=== PATIENT | male | born 1965 | race Caucasian/White ===

== ENCOUNTER 2023-01-02 14:46 | Inpatient (IN) ==
[2023-01-02] MEDS ORDERED: SODIUM CHLORIDE 0.9% 500 ML IV SCH (15:15)
--- NOTE | 2023-01-02 15:26 | Emergency Department Note ---
Impression & Plan Bilateral leg weakness, Lyme disease ED Provider Note INFORMANT: Patient ED PROVIDER(S): Jono Ashley DO CHIEF COMPLAINT: Leg weakness PLAN: Disposition: Transfer Outpatient prescription management: none Discussion with: oncology service and internal medicine service at [facility]. MEDICAL DECISION MAKING: This is a 57-year-old male who presents to the ED with a chief complaint of left leg weakness. The patient was at [facility] last through Saturday. He went there because of right leg weakness that started the day after Mother's Day. 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 He reportedly saw the surgical service there and had an MRI of his spine and a tumor was seen but it was not on the spine, it was paraspinal and the patient was discharged to rehab on Saturday. He has been at rehab. He reportedly did not see a neurologist or have any further work-up done for his leg weakness. The patient was sent to [facility]. He has been there for the past several days. This morning and perhaps even last evening the patient noticed weakness in his left leg that has progressed. He states that he did have motor function of the left leg upon discharge although he was not able to bear weight at that time. The states that he was able to bear weight prior to Mother's Day. He did not require any assistance. The patient has no additional complaints other than some left knee swelling that started yesterday. The was thinking it was related to physical therapy as they were manipulating his legs a lot. The patient denies any upper extremity weakness. No difficulty breathing. No abdominal pain. He does have chronic back pain. Vital signs here reveal tachycardia with heart rate of 119. Blood pressure 98/71. At 1600 hrs., I did speak with the Dr. Traore from [facility] oncology. She recommended high-dose steroids. 1 g of IV Solu-Medrol was administered. The patient is being accepted to go back to [place] for further work-up of his symptoms. The exact cause of his weakness is uncertain at this time. His exam reveals significant weakness in his bilateral legs. No reflexes. Unable to lift either leg off the bed. Able to move his left foot slightly. He reports that as of yesterday he was able to lift it off the bed. No upper extremity weakness. No other area of weakness in his face. COVID test was negative. EKG shows sinus tach rate of 117. No ST elevations. CBC shows no leukocytosis. Hemoglobin is 11.6. Chest x-ray shows no acute process. Chemistry panel showed no concerning abnormalities. BUN was 28. Lactic acid is mildly elevated 2.1. The Lyme test IgG came back positive. IgM was negative. He states that he has never been treated for Lyme disease. He was given IV Rocephin 2 g. The patient was treated with IV fluids. He was given a gram of IV Solu-Medrol. He will be transferred to [facility] for further evaluation of his symptoms. Because of his extensive back surgery and hardware, lumbar p uncture was not performed to rule out GBS. The patient's blood pressure was somewhat low here and he was mildly tachycardic. He states this is normal for him. [facility] contacted us around 8 PM stating that the patient is unable to be admitted there. There were no beds available. They are unsure when they will get a bed. I called the hospitalist who will see the patient for further evaluation and care. Triage Nursing notes reviewed. Vital Signs: reviewed Prior /Outside records reviewed: none Differential diagnosis: GN Robles syndrome, transverse myelitis, Lyme disease, spinal cord compression, cauda equina syndrome, conus medullaris, other. Diagnostics, as interpreted by me: 12 lead ECG: Sinus tachycardia rate of 117. No ST elevation. No PVCs. Normal QTc. Cardiac Monitoring ordered: Sinus tach 115. Medical decision rules: none Imaging studies: Chest x-ray: No pneumonia. No pneumothorax. Procedures: none. Critical care: none. HPI: See MDM above. PAST MEDICAL HISTORY: See Below PAST SURGICAL HISTORY: See Below SOCIAL HISTORY: See Below HOME MEDICATIONS:See Below ALLERGIES: See Below VITALS: See Below PHYSICAL EXAMINATION: See MDM for positive findings otherwise unremarkable. CONSTITUTIONAL/VITAL SIGNS: Reviewed GENERAL:done as appropriate INTEGUMENTARY: done as appropriate HEAD: done as appropriate EYES: done as appropriate RESPIRATORY: done as appropriate CARDIOVASCULAR:done as appropriate GI/ABDOMEN:done as appropriate EXTREMITIES: done as appropriate NEUROLOGICAL: done as appropriate PSYCHIATRIC:done as appropriate MUSCULOSKELETAL:done as appropriate TRIAGE NURSING DOCUMENTATION REVIEWED. Past Med/Surg History Social History Smoking Status: Never smoker Feels Safe at Home: Yes Allergies Allergies Allergy/AdvReac Type Severity Reaction Status Date / Time TAPE Allergy Mild IRRITATES Uncoded 01/02/23 15:32 SKIN Home Meds Home Medications Medication Instructions Recorded Confirmed acetaminophen 325 mg tablet 650 mg PO Q4H PRN Pain (Scale 01/02/23 01/02/23 (Tylenol) Score 1-3) bisacodyl 10 mg rectal suppository 10 mg WI DAILY PRN Constipation 01/02/23 01/02/23 docusate sodium 100 mg capsule 100 mg PO BID 01/02/23 01/02/23 magnesium hydroxide 400 mg/5 mL 30 ml PO DAILY PRN Constipation 01/02/23 01/02/23 oral suspension (Milk of Magnesia) ondansetron HCl 4 mg tablet 4 mg PO Q4H PRN NAUSEA/VOMITING 01/02/23 01/02/23 polyethylene glycol 3350 17 17 g PO BID 01/02/23 01/02/23 gram/dose oral powder (Miralax) sennosides 8.6 mg-docusate sodium 1 tab-cap PO QDL PRN Constipation 01/02/23 01/02/23 50 mg tablet (Senokot-S) sodium phosphates 19 gram-7 118 ml WI DAILY PRN Constipation 01/02/23 01/02/23 gram/118 mL enema (Fleet Enema) sulfamethoxazole 800 1 tab PO BID 01/02/23 01/02/23 mg-trimethoprim 160 mg tablet (Bactrim DS) zinc sulfate 50 mg zinc (220 mg) 50 mg PO DAILY 01/02/23 01/02/23 capsule Results & Data (ED) Vital Signs Vital Signs - 24 hr 01/02/23 15:00 01/02/23 15:04 01/02/23 15:37 Temperature 36.6 C Temperature Source Oral Pulse Rate 110 H 119 H Respiratory Rate 18 Blood Pressure 98/71 L Blood Pressure [Right Arm] Blood Pressure Mean 80 Blood Pressure Mean [Right Arm] Pulse Oximetry 98 98 Oxygen Delivery Method Room Air Room Air Sepsis Recent Fever Within 48 Hours No Sepsis New/Unexplained Change in Mental Status No Sepsis Action Taken by Nursing Physician Notified 01/02/23 15:05 01/02/23 15:30 01/02/23 15:58 Temperature Temperature Source Pulse Rate 117 H 115 H 116 H Respiratory Rate 20 21 24 Blood Pressure Blood Pressure [Right Arm] Blood Pressure Mean Blood Pressure Mean [Right Arm] Pulse Oximetry Oxygen Delivery Method Sepsis Recent Fever Within 48 Hours Sepsis New/Unexplained Change in Mental Status Sepsis Action Taken by Nursing 01/02/23 15:58 01/02/23 16:00 01/02/23 16:30 Temperature Temperature Source Pulse Rate 116 H 111 H Respiratory Rate 28 H 20 Blood Pressure 97/63 L Blood Pressure [Right Arm] Blood Pressure Mean 70 Blood Pressure Mean [Right Arm] Pulse Oximetry Oxygen Delivery Method Sepsis Recent Fever Within 48 Hours Sepsis New/Unexplained Change in Mental Status Sepsis Action Taken by Nursing 01/02/23 17:00 01/02/23 17:05 01/02/23 17:05 Temperature Temperature Source Pulse Rate 118 H 117 H Respiratory Rate 24 17 Blood Pressure 90/61 L Blood Pressure [Right Arm] Blood Pressure Mean 68 Blood Pressure Mean [Right Arm] Pulse Oximetry Oxygen Delivery Method Sepsis Recent Fever Within 48 Hours Sepsis New/Unexplained Change in Mental Status Sepsis Action Taken by Nursing 01/02/23 17:30 01/02/23 18:00 01/02/23 18:00 Temperature Temperature Source Pulse Rate 113 H 109 H Respiratory Rate 20 17 Blood Pressure 106/71 Blood Pressure [Right Arm] Blood Pressure Mean 76 Blood Pressure Mean [Right Arm] Pulse Oximetry Oxygen Delivery Method Sepsis Recent Fever Within 48 Hours Sepsis New/Unexplained Change in Mental Status Sepsis Action Taken by Nursing 01/02/23 18:30 01/02/23 19:02 01/02/23 19:00 Temperature Temperature Source Pulse Rate 112 H 116 H Respiratory Rate 20 21 Blood Pressure Blood Pressure [Right Arm] 109/72 Blood Pressure Mean Blood Pressure Mean [Right Arm] 84 Pulse Oximetry Oxygen Delivery Method Sepsis Recent Fever Within 48 Hours Sepsis New/Unexplained Change in Mental Status Sepsis Action Taken by Nursing 01/02/23 19:00 01/02/23 19:24 01/02/23 19:30 Temperature Temperature Source Pulse Rate 116 H 117 H Respiratory Rate 17 Blood Pressure 109/72 Blood Pressure [Right Arm] Blood Pressure Mean 83 Blood Pressure Mean [Right Arm] Pulse Oximetry Oxygen Delivery Method Sepsis Recent Fever Within 48 Hours Sepsis New/Unexplained Change in Mental Status Sepsis Action Taken by Nursing 01/02/23 20:00 Temperature Temperature Source Pulse Rate 115 H Respiratory Rate 20 Blood Pressure Blood Pressure [Right Arm] Blood Pressure Mean Blood Pressure Mean [Right Arm] Pulse Oximetry Oxygen Delivery Method Sepsis Recent Fever Within 48 Hours Sepsis New/Unexplained Change in Mental Status Sepsis Action Taken by Nursing Laboratory Data 01/02/23 15:28 01/02/23 15:28 Lab Results 01/02/23 01/02/23 01/02/23 Range/Units 15:28 15:28 15:28 WBC (4.8-10.8) K/ul RBC (4.70-6.10) M/uL Hgb (14.0-18.0) g/dl Hct (42.0-52.0) % MCV (80.0-100.0) fL MCH (25.0-34.0) pg MCHC (32.0-36.0) g/dL RDW Std Deviation (36.4-46.3) fL RDW Coeff of Alexa (11.5-14.5) % Plt Count (130-400) K/uL MPV (9.4-12.4) fL Immature Gran % (Auto) % Neut % (Auto) % Lymph % (Auto) % Mccone % (Auto) % Eos % (Auto) % Baso % (Auto) % Neut # (Auto) (1.40-6.50) K/uL Lymph # (Auto) (1.2-3.4) K/uL Mccone # (Auto) (0.11-0.59) K/uL Eos # (Auto) (0-0.50) K/uL Baso # (Auto) (0-0.2) K/uL Immature Gran # (Auto) (0.01-0.20) K/uL Sodium 136 (136-145) mmol/L Potassium 4.8 (3.5-5.1) mmol/L Chloride 99 (98-107) mmol/L Carbon Dioxide 30 (21-32) mmol/L Anion Gap 7 (3-11) BUN 28 H (6-23) mg/dl Creatinine 1.12 (0.6-1.4) mg/dl Est Cr Clr Drug Dosing Not Reportable Est GFR ( Amer) 84.1 ml/min Est GFR (Non-Af Amer) 72.5 ml/min BUN/Creatinine Ratio 25.0 H (10-20) Glucose 98 (70-99(Fasting)) mg/dl Lactate 2.1 H* (0.4-2.0) mmol/L Calcium 9.3 (8.6-10.3) mg/dl Magnesium 2.0 (1.7-2.4) mg/dl Total Bilirubin 0.3 (0.2-1.0) mg/dl AST 25 (13-39) U/L ALT 22 (7-52) U/L Alkaline Phosphatase 93 (34-104) U/L Total Creatine Kinase 100 (30-223) U/L Total Protein 7.2 (6.0-8.3) gm/dl Albumin 3.6 (3.4-5.0) gm/dl Globulin 3.6 (2.5-4.0) gm/dl Albumin/Globulin Ratio 1.0 (0.9-2) TSH (0.300-4.500) uIu/ml Lyme Disease IgG Ab Positive A (Negative) Lyme Disease IgM Ab Negative (Negative) SARS-CoV-2, RNA, NAAT (NEGATIVE) 01/02/23 01/02/23 01/02/23 Range/Units 15:28 15:28 15:28 WBC 7.60 (4.8-10.8) K/ul RBC 3.76 L (4.70-6.10) M/uL Hgb 11.6 L (14.0-18.0) g/dl Hct 35.3 L (42.0-52.0) % MCV 93.9 (80.0-100.0) fL MCH 30.9 (25.0-34.0) pg MCHC 32.9 (32.0-36.0) g/dL RDW Std Deviation 46.1 (36.4-46.3) fL RDW Coeff of Alexa 13.4 (11.5-14.5) % Plt Count 201 (130-400) K/uL MPV 8.9 L (9.4-12.4) fL Immature Gran % (Auto) 0.7 % Neut % (Auto) 74.0 % Lymph % (Auto) 13.8 % Mccone % (Auto) 11.4 % Eos % (Auto) 0.0 % Baso % (Auto) 0.1 % Neut # (Auto) 5.62 (1.40-6.50) K/uL Lymph # (Auto) 1.05 L (1.2-3.4) K/uL Mccone # (Auto) 0.87 H (0.11-0.59) K/uL Eos # (Auto) 0.00 (0-0.50) K/uL Baso # (Auto) 0.01 (0-0.2) K/uL Immature Gran # (Auto) 0.05 (0.01-0.20) K/uL Sodium (136-145) mmol/L Potassium (3.5-5.1) mmol/L Chloride (98-107) mmol/L Carbon Dioxide (21-32) mmol/L Anion Gap (3-11) BUN (6-23) mg/dl Creatinine (0.6-1.4) mg/dl Est Cr Clr Drug Dosing Est GFR ( Amer) ml/min Est GFR (Non-Af Amer) ml/min BUN/Creatinine Ratio (10-20) Glucose (70-99(Fasting)) mg/dl Lactate (0.4-2.0) mmol/L Calcium (8.6-10.3) mg/dl Magnesium (1.7-2.4) mg/dl Total Bilirubin (0.2-1.0) mg/dl AST (13-39) U/L ALT (7-52) U/L Alkaline Phosphatase (34-104) U/L Total Creatine Kinase (30-223) U/L Total Protein (6.0-8.3) gm/dl Albumin (3.4-5.0) gm/dl Globulin (2.5-4.0) gm/dl Albumin/Globulin Ratio (0.9-2) TSH 2.434 (0.300-4.500) uIu/ml Lyme Disease IgG Ab (Negative) Lyme Disease IgM Ab (Negative) SARS-CoV-2, RNA, NAAT NEGATIVE (NEGATIVE) 01/02/23 Range/Units 17:43 WBC (4.8-10.8) K/ul RBC (4.70-6.10) M/uL Hgb (14.0-18.0) g/dl Hct (42.0-52.0) % MCV (80.0-100.0) fL MCH (25.0-34.0) pg MCHC (32.0-36.0) g/dL RDW Std Deviation (36.4-46.3) fL RDW Coeff of Alexa (11.5-14.5) % Plt Count (130-400) K/uL MPV (9.4-12.4) fL Immature Gran % (Auto) % Neut % (Auto) % Lymph % (Auto) % Mccone % (Auto) % Eos % (Auto) % Baso % (Auto) % Neut # (Auto) (1.40-6.50) K/uL Lymph # (Auto) (1.2-3.4) K/uL Mccone # (Auto) (0.11-0.59) K/uL Eos # (Auto) (0-0.50) K/uL Baso # (Auto) (0-0.2) K/uL Immature Gran # (Auto) (0.01-0.20) K/uL Sodium (136-145) mmol/L Potassium (3.5-5.1) mmol/L Chloride (98-107) mmol/L Carbon Dioxide (21-32) mmol/L Anion Gap (3-11) BUN (6-23) mg/dl Creatinine (0.6-1.4) mg/dl Est Cr Clr Drug Dosing Est GFR ( Amer) ml/min Est GFR (Non-Af Amer) ml/min BUN/Creatinine Ratio (10-20) Glucose (70-99(Fasting)) mg/dl Lactate 1.4 (0.4-2.0) mmol/L Calcium (8.6-10.3) mg/dl Magnesium (1.7-2.4) mg/dl Total Bilirubin (0.2-1.0) mg/dl AST (13-39) U/L ALT (7-52) U/L Alkaline Phosphatase (34-104) U/L Total Creatine Kinase (30-223) U/L Total Protein (6.0-8.3) gm/dl Albumin (3.4-5.0) gm/dl Globulin (2.5-4.0) gm/dl Albumin/Globulin Ratio (0.9-2) TSH (0.300-4.500) uIu/ml Lyme Disease IgG Ab (Negative) Lyme Disease IgM Ab (Negative) SARS-CoV-2, RNA, NAAT (NEGATIVE) Administered Medications Discontinued Medications Sodium Chloride (Nss) 500 mls @ 999 mls/hr IV .Q31M ANIA Stop: 01/02/23 15:45 Last Infusion: 01/02/23 17:17 Dose: 0 mls/hr Documented By: Admin: 01/02/23 15:39 Dose: 999 mls/hr Documented By: JALIL Methylprednisolone 1,000 mg/ (Dextrose) 266 mls @ 266 mls/hr IV NOW STA Stop: 01/02/23 17:04 Last Infusion: 01/02/23 18:52 Dose: 0 mls/hr Documented By: Admin: 01/02/23 17:17 Dose: 266 mls/hr Documented By: JALIL Sodium Chloride (Nss 1000ml) 1,000 mls @ 999 mls/hr IV .Q1H1M ONE Stop: 01/02/23 17:08 Last Infusion: 01/02/23 18:52 Dose: 0 mls/hr Documented By: Admin: 01/02/23 17:08 Dose: 999 mls/hr Documented By: JALIL Ceftriaxone Sodium (Rocephin) 2,000 mg in 70 mls @ 140 mls/hr IV NOW STA Stop: 01/02/23 18:55 Last Infusion: 01/02/23 19:26 Dose: 0 mls/hr Documented By: Admin: 01/02/23 19:00 Dose: 140 mls/hr Documented By: JALIL Imaging Data Radiologist's Impression: Chest X-Ray 01/02/23 15:13 XR chest 1V portable HISTORY: weakness COMPARISON: None. FINDINGS: No pneumothorax. No pleural effusions. Postoperative changes within the right lung with right apical scarlike densities and pleural thickening. Volume loss within the right hemithorax likely due to the postoperative changes. Old, healed right-sided rib fractures are noted. There are suture material within the right medial lung base. The left lung is clear. The heart is normal in size. There is extensive posterior fusion hardware within the thoracolumbar spine. A right jugular Port-A-Cath terminates in the SVC. Right tracheal deviation is likely due to the volume loss and retraction within the right lung apex. No evidence for pulmonary edema. IMPRESSION: Postoperative changes noted within the right hemithorax. Otherwise, no acute process within the chest. ACT 112: Negative or not required by law. Electronically signed by: Jeffrey Fried M.D. 01/02/2023 4:01 PM Discharge Plan Visit Data Chief Complaint: Leg Weakness, Bilateral Stated Complaint: LEG WEAKNESS ED Provider: Jono Ashley Discharge Problem: Bilateral leg weakness, Lyme disease Patient Disposition: Transfer Acute Care Hospital Forms Stand Alone Forms: [facility] Prescriptions Prescriptions: No Action acetaminophen [Tylenol] 325 mg Tablet 650 mg PO Q4H PRN (Reason: Pain (Scale Score 1-3)) ondansetron HCl [Zofran] 4 mg Tablet 4 mg PO Q4H PRN (Reason: NAUSEA/VOMITING) sennosides-docusate sodium [Senokot-S] 8.6-50 mg Tablet 1 tab-cap PO QDL PRN (Reason: Constipation) sulfamethoxazole-trimethoprim [Bactrim DS] 800-160 mg Tablet 1 tab PO BID Rx Instructions: STARTED 12/30/22 FOR 30 DAYS, STOP 01/29/23. magnesium hydroxide [Milk of Magnesia] 400 mg/5 mL Suspension 30 ml PO DAILY PRN (Reason: Constipation) bisacodyl 10 mg Suppository 10 mg WI DAILY PRN (Reason: Constipation) Fleet Enema 19-7 gram/118 mL Enema 118 ml WI DAILY PRN (Reason: Constipation) docusate sodium 100 mg Capsule 100 mg PO BID polyethylene glycol 3350 [Miralax] 17 gram/dose Powder 17 g PO BID zinc sulfate 50 mg zinc (220 mg) Capsule 50 mg PO DAILY Referrals Referrals: [facility] [Primary Care Provider] -
[2023-01-02 15:58] LABS: Basophils # (auto) 0.01 K/uL (0-0.2); Basophils % (auto) 0.1 %; Hematocrit (blood only) 35.3 % (42.0-52.0); Hemoglobin 11.6 g/dl (14.0-18.0); Immature Granulocytes # (auto) 0.05 K/uL (0.01-0.20); Immature Granulocytes % (auto) 0.7 %; Lymphocytes # (auto) 1.05 K/uL (1.2-3.4); Lymphocytes % (auto) 13.8 %; Mean Corpuscular Hemoglobin 30.9 pg (25.0-34.0); Mean Corpuscular Hgb Conc 32.9 g/dL (32.0-36.0); Mean Corpuscular Volume 93.9 fL (80.0-100.0); Mean Platelet Volume 8.9 fL (9.4-12.4); Monocytes # (auto) 0.87 K/uL (0.11-0.59); Monocytes % (auto) 11.4 %; Neutrophils # (auto) 5.62 K/uL (1.40-6.50); Platelet Count 201 K/uL (130-400); RDW Coefficient of Variation 13.4 % (11.5-14.5); RDW Standard Deviation 46.1 fL (36.4-46.3); Red Blood Count 3.76 M/uL (4.70-6.10)
[2023-01-02] MEDS ORDERED: methylPREDNISolone 125 MG/2 ML VIAL IV STA (16:02)
--- NOTE | 2023-01-02 16:02 | XRay Report ---
XR chest 1V portable HISTORY: weakness COMPARISON: None. FINDINGS: No pneumothorax. No pleural effusions. Postoperative changes within the right lung with rig ht apical scarlike densities and pleural thickening. Volume loss within the right hemithorax likely d ue to the postoperative changes. Old, healed right-sided rib fractures are noted. There are suture ma terial within the right medial lung base. The left lung is clear. The heart is normal in size. There is extensive posterior fusion hardware within the thoracolumbar spine. A right jugular Port-A-Cath te rminates in the SVC. Right tracheal deviation is likely due to the volume loss and retraction within the right lung apex. No evidence for pulmonary edema. IMPRESSION: Postoperative changes noted within the right hemithorax. Otherwise, no acute process within the chest . ACT 112: Negative or not required by law. Electronically signed by: Jeffrey Fried M.D. 01/02/2023 4:01 PM
[2023-01-02] MEDS ORDERED: methylPREDNISolone 1,000 MG in DEXTROSE 5% 250 ML IV STA (16:05)
[2023-01-02] MEDS ORDERED: SODIUM CHLORIDE 0.9% 1000ML 1,000 ML IV ONE (16:08)
[2023-01-02 16:10] LABS: Alanine Aminotransferase 22 U/L (7-52); Albumin Level 3.6 gm/dl (3.4-5.0); Alkaline Phosphatase 93 U/L (34-104); Anion Gap 7 (3-11); Aspartate Aminotransferase 25 U/L (13-39); Bilirubin,Total 0.3 mg/dl (0.2-1.0); Blood Urea Nitrogen 28 mg/dl (6-23); Calcium 9.3 mg/dl (8.6-10.3); Carbon Dioxide 30 mmol/L (21-32); Chloride 99 mmol/L (98-107); Creatine Kinase 100 U/L (30-223); Est GFR (African American) 84.1 ml/min; Est GFR (Non-African American) 72.5 ml/min; Globulin 3.6 gm/dl (2.5-4.0); Glucose 98 mg/dl (70-99(Fasting)); Potassium 4.8 mmol/L (3.5-5.1); Sodium 136 mmol/L (136-145); Total Protein 7.2 gm/dl (6.0-8.3)
[2023-01-02 16:48] LABS: Lyme Ab IgM w/WB Rflx Negative (Negative)
[2023-01-02 16:50] LABS: Lyme Ab IgG w/WB Rflx Positive (Negative)
[2023-01-02] MEDS ORDERED: cefTRIAXone SODIUM 2,000 MG/70 ML BAG IV STA (18:26)
[2023-01-03] MEDS ORDERED: NITROGLYCERIN SL 0.4 MG/TAB TAB SL PRN (00:11)
[2023-01-03] MEDS ORDERED: bisacodyL 10 MG SUPP PR PRN (00:11)
[2023-01-03] MEDS ORDERED: POLYETHYLENE (MIRALAX) 17 GM PACK PO PRN (00:11)
[2023-01-03] MEDS ORDERED: SOD PHOSPHATE/SOD BIPHOSPHATE ENEMA 132 ML BTL PR PRN (00:11)
[2023-01-03] MEDS ORDERED: SODIUM CHLORIDE 0.9% 1000ML 1,000 ML IV SCH (00:11)
[2023-01-03] MEDS ORDERED: DOCUSATE SODIUM/SENNA 50/8.6MG TAB PO PRN (00:11)
[2023-01-03] MEDS ORDERED: ACETAMINOPHEN 325 MG TAB PO PRN ×2 (00:11)
[2023-01-03] MEDS ORDERED: ONDANSETRON 4 MG OD TAB PO PRN (00:43)
--- NOTE | 2023-01-03 00:57 | History and Physical Report ---
DATE OF ADMISSION: 01/02/2023. CHIEF COMPLAINT: Bilateral leg weakness. 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 He was admitted on 12/27/2022. Recently from 12/20/2022 to 12/22/2019, he also treated for aspiration pneumonia with Augmentin course, which resolved his symptoms. In [place], for right leg weaness he was evaluated by Spine Neurosurgery, advised to have an MRI cervical, thoracic and lumbar spine, resulted as chronic postsurgical tenderness, epidural metastasis postradiation changes. Slightly increased foraminal paravertebral tumor most evident at right T11-T12 neural foramen and increased size of enhancing mass at right paraspinal compartment measuring 6.2 cm. Based on MRI review by Neurosurgery, advised no acute surgical intervention, but to have Radiation Oncology and Oncology followup. Radiation Oncology advised to continue outpatient followup and not to have any acute radiation treatment currently. Per Oncology advised to resume capecitabine 1000 mg p.o. b.i.d., on 1-14 of a 21-day cycle. Oncology, Radiation Oncology is supposed to follow as outpatient. During the stay, the patient had urinary retention requires straight catheterization and discharged to rehab [facility]. Currently on Staley. In the last couple of days patient developed left lower extremity weakness and not able to move both lower extremities now. He has sensations intact. He has a Staley catheter and he was constipated in the last couple of weeks and is using stool softeners. ER talked to the [place] [facility]cology and Hospitalist and was accepted in transfer. But currently [facility] they do not have beds and will be getting admitted here tonight. In the ER, his Lyme screen came back positive IgG, IgM is negative. We are waiting for the bands, received Rocephin,. He says couple of weeks ago, he also has discomfort in the right shoulder and has some difficulty with neck movement, but that is improved now. ALLERGIES: TAPE. PAST MEDICAL HISTORY: As mentioned above. PAST SURGICAL HISTORY: Decompressed thoracic spine surgery, thymus resection and removal in 1990, right lung resection 1990. Multiple spine surgeries. MEDICATIONS: The patient is on Tylenol 650 mg p.o. q. 4 hours p.r.n., bisacodyl 10 mg p.o. daily p.r.n.,., Colace 100 mg p.o. b.i.d.milk of magnesia 30ml daily p.r.n., Zofran 4 mg p.o. q. 4 hours p.r.n., MiraLax 17 g p.o. b.i.d., Senokot-S 1 tablet p.o. daily p.r.n., Bactrim 1 tablet p.o. b.i.d., zinc sulfate 50 mg p.o. daily. FAMILY HISTORY: Significant for maternal grandmother has acute [place], paternal grandfather has acute [place], maternal grandfather had cancer, maternal grandmother had cancer; mother had breast cancer; paternal grandmother had diabetes; mother has skin disorder. SOCIAL HISTORY: , no smoking, no alcohol, no drug use. REVIEW OF SYSTEMS: As per HPI. Rest of the review of systems is negative. PHYSICAL EXAMINATION: GENERAL: The patient is of moderate build, not in acute distress. VITAL SIGNS: Temperature 36.6, pulse 115, respiratory rate 20, blood pressure 96/61, oxygen 97% on room air. HEENT: Pupils equal, round and reactive of light. Extraocular muscles intact. No pallor. No thrush. Oral mucosa moist. NECK: No neck masses. Supple. CARDIOVASCULAR: S1 and S2 heard. Regular rate and rhythm. No murmur, no gallop. RESPIRATORY SYSTEM: Normal AP diameter. No accessory muscle use. No wheezing, no crackles. ABDOMEN: Soft, bowel sounds present, nontender, no distention. CENTRAL NERVOUS SYSTEM: Alert and oriented. Speech is clear. No facial droop. Insight is good. Power 5/5 in upper extremities. coordination normal in upper extremities, cannot move his lower extremities. Sensation is intact. EXTREMITIES: No edema, no erythema. LABORATORY DATA: WBC 7.6, hemoglobin 11.6, hematocrit 35.3, platelets 201. Sodium 136, potassium 4.8, chloride 99, CO2 of 30, BUN 20, creatinine 1.1, serum glucose 98. Lactate initially was 2.1, repeat is 1.4, calcium 9.3, magnesium 2, total bilirubin 0.3, AST 25, ALT 22, alkaline phosphatase 93, total creatine kinase 100,Tsh 2.4. Lyme screen IgG positive, IgM negative. Bands are pending. SARS-CoV-2 rapid test negative. Chest x-ray, postoperative changes noted in the right hemithorax, otherwise no acute process in the chest. EKG: Sinus tachycardia at a rate of 117. Nonspecific ST abnormalities. ASSESSMENT AND PLAN: 1. This is a 57-year-old male with past medical history significant for malignant thymoma diagnosed in , status post resection, chemoradiation with mets to lungs and spine, status post right lung lobectomy and multiple spine surgeries, history of nocardia, thrombocytopenia, BPH, urinary retention, Staley, severe malnutrition, was recently after Mother's Day having right lower extremity was in [place] from 12/27/2020 to 12/30/2021, evaluated by Neurosurgery and reviewed MRI scans and , recommended Radiation Oncology and Oncology. Rad/onco and onco to follow as out patient and patient was discharged to rehab [facility]. Comes here because of now he has also developed left lower extremity weakness. ER talked to the Oncology in [place] and hospitalist in [place] and was accepted in transfer, but they do not have bed currently, was advised to give 1 gram of Solu-Medrol, which was given. He was also found to have on Lyme screen IgG positive, IgM negative. Started on Rocephin, follow the bands. Closely monitor in the hospital here and while we are awaiting transfer, but if transfer is getting delayed we will consult Neurology in the hospital. 2. History of nocardia, continue the Bactrim 3. Deep venous thrombosis prophylaxis: Placed on sequential compression devices. DISPOSITION: Admit to tele. Expect transfer to [place] when bed available. Job ID: [id number] [facility]
[2023-01-03] MEDS: SULFAMETHOXAZOLE/TRIMETHOPRIM DS 800/160MG TAB PO SCH ×3 (01:21→20:33)
[2023-01-03 01:37] LABS: Appearance Urine Clear (Clear); Bacteria Urine Automated Negative (Negative); Bilirubin Urine Negative (Negative); Blood Urine 3+ (Negative); Color Urine Yellow; Glucose Urine UA Negative (Negative); Ketones Urine Trace (Negative); Leukocyte Esterase Urine Trace (Negative); Nitrite Urine Negative (Negative); Protein Urine Negative (Negative); RBC Urine Automated >30 /hpf (0-4); Specific Gravity Urine 1.021 (1.000-1.030); Urobilinogen Urine Negative (Negative)
[2023-01-03 04:45] LABS: Hematocrit (blood only) 32.1 % (42.0-52.0); Hemoglobin 10.5 g/dl (14.0-18.0); Mean Corpuscular Hemoglobin 30.4 pg (25.0-34.0); Mean Corpuscular Hgb Conc 32.7 g/dL (32.0-36.0); Platelet Count 188 K/uL (130-400); RDW Coefficient of Variation 13.4 % (11.5-14.5); RDW Standard Deviation 45.2 fL (36.4-46.3); Red Blood Count 3.45 M/uL (4.70-6.10); White Blood Count 4.32 K/ul (4.8-10.8)
[2023-01-03 04:51] LABS: BUN Creatinine Ratio 28.1 (10-20); Calcium 8.9 mg/dl (8.6-10.3); Creatinine Clr Calc Pharmacy 85.6 ml/min; Est GFR (Non-African American) 94.9 ml/min; Magnesium 1.7 mg/dl (1.7-2.4); Potassium 4.6 mmol/L (3.5-5.1)
[2023-01-03 05:17] LABS: Echinocytes 1+; Immature Granulocytes # (auto) 0.07 K/uL (0.01-0.20); Immature Granulocytes % (auto) 1.6 %; Lymphocytes # (auto) 0.32 K/uL (1.2-3.4); Lymphocytes % (auto) 7.4 %; Monocytes # (auto) 0.02 K/uL (0.11-0.59); Monocytes % (auto) 0.5 %; Neutrophils # (auto) 3.91 K/uL (1.40-6.50); Neutrophils % (auto) 90.5 %; Polychromasia 1+
[2023-01-03] MEDS ORDERED: ZINC SULFATE 220 MG CAPSULE PO SCH (09:00)
[2023-01-03] MEDS: DOCUSATE SODIUM 100 MG CAP PO SCH ×2 (10:29→20:32)
[2023-01-03] MEDS: POLYETHYLENE (MIRALAX) 17 GM PACK PO SCH ×2 (10:31→20:32)
[2023-01-03] MEDS: ZINC SULFATE 220 MG CAPSULE PO SCH (10:42)
--- NOTE | 2023-01-03 13:21 | Hospitalist Progress Note ---
Date of Service January 03, 2023 Assessment & Plan (1) Bilateral leg weakness: (2) Lyme disease: Plan Patient is a 57-year-old male with past medical history significant for malignant thymoma diagnosed in , status post resection, chemoradiation with mets to lungs and spine, status post right lung lobectomy and multiple spine surgeries, history of nocardia, thrombocytopenia, BPH, urinary retention, Staley, severe malnutrition, was recently after Mother's Day having right lower extremity was in [place] from 12/27/2020 to 12/30/2021, evaluated by Neurosurgery and reviewed MRI scans and , recommended Radiation Oncology and Oncology. Rad/onco and onco to follow as out patient and patient was discharged to rehab [facility]. Patient presented here here because of now he has also developed left lower extremity weakness. ER talked to the Oncology in [place] and hospitalist in [place] and was accepted in transfer, but they do not have bed currently, was advised to give 1 gram of Solu-Medrol, which was given. He was also found to have on Lyme screen IgG positive, IgM negative. Lab work done during the hospitalization reviewed; were within normal limits. Chest x-ray personally reviewed; no acute process present. Patient denies any history of Lyme disease in the past. Inquired if Lyme disease can cause the presenting weakness. As per him, neurology consultation was not done last admission when he was admitted to [place]. Started on Rocephin, follow the bands. Discussed with transfer center; bed to likely to be available later today or overnight. History of Nocardia; continue Bactrim DVT prophylaxis; SCDs for now. Discussed with his over the phone. Answered questions/queries Admission and Anticipated Discharge Date Admission Date: January 02, 2023 Subjective Patient seen and examined in the ED. Is lying on the bed comfortably; not in distress. He reports weakness in bilateral lower extremity. Afebrile. Hemodynamically stable. Review of Systems Review of Systems: All systems reviewed & are unremarkable except as noted in Subjective Physical Exam Physical Exam: Constitutional: WD/WN, vitals as above, NAD, sitting up in bed, pleasant, conversing easily Respiratory: normal respiratory effort, lungs clear to auscultation, no wheeze, rales, rhonchi. Normal insp/exp effort, no accessory muscle use Chestright-sided port present. Cardiovascular: RRR, no murmur, no edema Vessels: no JVD or carotid bruit Chest: normal inspection of chest Abdomen: normal bowel sounds, soft, nontender, no hepatosplenomegaly Musculoskeletal: no cyanosis or clubbing, extremities motor strength 5/5 Skin: no rashes, warm and dry normal turgor Neurologic: Alert orient x3. Cranial nerves II to X intact. Strength in upper extremity symmetric and antigravity. Unable to move lower extremity. Spasms noted in bilateral lower extremity. Sensation intact. Results & Data Results & Data Vital Signs (Past 12 Hours) Vital Signs Pulse Pulse Resp BP Pulse Ox O2 Del Method 01/03/23 07:50 101 H 01/03/23 06:20 105 H 17 93/60 L 100 Room Air 01/03/23 03:54 108 H 17 102/68 98 Room Air Laboratory Results Laboratory Results WBC 4.32 K/ul (4.8-10.8) L 01/03/23 04:15 RBC 3.45 M/uL (4.70-6.10) L 01/03/23 04:15 Hgb 10.5 g/dl (14.0-18.0) L 01/03/23 04:15 Hct 32.1 % (42.0-52.0) L 01/03/23 04:15 MCV 93.0 fL (80.0-100.0) 01/03/23 04:15 MCH 30.4 pg (25.0-34.0) 01/03/23 04:15 MCHC 32.7 g/dL (32.0-36.0) 01/03/23 04:15 RDW Std Deviation 45.2 fL (36.4-46.3) 01/03/23 04:15 RDW Coeff of Alexa 13.4 % (11.5-14.5) 01/03/23 04:15 Plt Count 188 K/uL (130-400) 01/03/23 04:15 MPV 9.0 fL (9.4-12.4) L 01/03/23 04:15 Immature Gran % (Auto) 1.6 % 01/03/23 04:15 Neut % (Auto) 90.5 % 01/03/23 04:15 Lymph % (Auto) 7.4 % 01/03/23 04:15 [place] % (Auto) 0.5 % 01/03/23 04:15 Eos % (Auto) 0.0 % 01/03/23 04:15 Baso % (Auto) 0.0 % 01/03/23 04:15 Neut # (Auto) 3.91 K/uL (1.40-6.50) 01/03/23 04:15 Lymph # (Auto) 0.32 K/uL (1.2-3.4) L 01/03/23 04:15 [place] # (Auto) 0.02 K/uL (0.11-0.59) L 01/03/23 04:15 Eos # (Auto) 0.00 K/uL (0-0.50) 01/03/23 04:15 Baso # (Auto) 0.00 K/uL (0-0.2) 01/03/23 04:15 Immature Gran # (Auto) 0.07 K/uL (0.01-0.20) 01/03/23 04:15 Polychromasia 1+ 01/03/23 04:15 Echinocytes 1+ 01/03/23 04:15 Sodium 134 mmol/L (136-145) L 01/03/23 04:15 Potassium 4.6 mmol/L (3.5-5.1) 01/03/23 04:15 Chloride 103 mmol/L (98-107) 01/03/23 04:15 Carbon Dioxide 25 mmol/L (21-32) 01/03/23 04:15 Anion Gap 6 (3-11) 01/03/23 04:15 BUN 25 mg/dl (6-23) H 01/03/23 04:15 Creatinine 0.89 mg/dl (0.6-1.4) 01/03/23 04:15 Est Cr Clr Drug Dosing 85.6 ml/min 01/03/23 04:15 Est GFR ( Amer) 110.0 ml/min 01/03/23 04:15 Est GFR (Non-Af Amer) 94.9 ml/min 01/03/23 04:15 BUN/Creatinine Ratio 28.1 (10-20) H 01/03/23 04:15 Glucose 206 mg/dl (70-99(Fasting)) H 01/03/23 04:15 Lactate 1.4 mmol/L (0.4-2.0) 01/02/23 17:43 Calcium 8.9 mg/dl (8.6-10.3) 01/03/23 04:15 Magnesium 1.7 mg/dl (1.7-2.4) 01/03/23 04:15 Total Bilirubin 0.3 mg/dl (0.2-1.0) 01/02/23 15:28 AST 25 U/L (13-39) 01/02/23 15:28 ALT 22 U/L (7-52) 01/02/23 15:28 Alkaline Phosphatase 93 U/L (34-104) 01/02/23 15:28 Total Creatine Kinase 100 U/L (30-223) 01/02/23 15:28 Total Protein 7.2 gm/dl (6.0-8.3) 01/02/23 15:28 Albumin 3.6 gm/dl (3.4-5.0) 01/02/23 15:28 Globulin 3.6 gm/dl (2.5-4.0) 01/02/23 15:28 Albumin/Globulin Ratio 1.0 (0.9-2) 01/02/23 15:28 TSH 2.434 uIu/ml (0.300-4.500) 01/02/23 15:28 Urine Color Yellow 01/03/23 01: Urine Appearance Clear (Clear) 01/03/23 01: Urine pH 6.0 (4.5-7.5) 01/03/23 01:23 Ur Specific [place] 1.021 (1.000-1.030) 01/03/23 01:23 Urine Protein Negative (Negative) 01/03/23 01:23 Urine Glucose (UA) Negative (Negative) 01/03/23 01:23 Urine Ketones Trace (Negative) H 01/03/23 01:23 Urine Blood 3+ (Negative) H 01/03/23 01:23 Urine Nitrite Negative (Negative) 01/03/23 01: Urine Bilirubin Negative (Negative) 01/03/23 01:23 Urine Urobilinogen Negative (Negative) 01/03/23 01:23 Ur Leukocyte Esterase Trace (Negative) H 01/03/23 01:23 Urine WBC (Auto) 1-5 /hpf (0-5) 01/03/23 01:23 Urine RBC (Auto) >30 /hpf (0-4) H 01/03/23 01:23 U Hyaline Cast (Auto) 1-5 /lpf (0-5) 01/03/23 01:23 U Epithel Cells (Auto) 5-10 /lpf (0-5) H 01/03/23 01:23 Urine Bacteria (Auto) Negative (Negative) 01/03/23 01:23 Lyme Disease IgG Ab Positive (Negative) A 01/02/23 15:28 Lyme Disease IgM Ab Negative (Negative) 01/02/23 15:28 SARS-CoV-2, RNA, NAAT NEGATIVE (NEGATIVE) 01/02/23 15:28 Impressions Chest X-Ray 01/02/23 15:13 XR chest 1V portable HISTORY: weakness COMPARISON: None. FINDINGS: No pneumothorax. No pleural effusions. Postoperative changes within the right lung with right apical scarlike densities and pleural thickening. Volume loss within the right hemithorax likely due to the postoperative changes. Old, healed right-sided rib fractures are noted. There are suture material within the right medial lung base. The left lung is clear. The heart is normal in size. There is extensive posterior fusion hardware within the thoracolumbar spine. A right jugular Port-A-Cath terminates in the SVC. Right tracheal deviation is likely due to the volume loss and retraction within the right lung apex. No evidence for pulmonary edema. IMPRESSION: Postoperative changes noted within the right hemithorax. Otherwise, no acute pr ocess within the chest. ACT 112: Negative or not required by law. Electronically signed by: Jeffrey Fried M.D. 01/02/2023 4:01 PM
--- NOTE | 2023-01-03 13:25 | Discharge Summary ---
Date of Service January 03, 2023 Admission HPI Per Admitting Provider This is a 57-year-old male with past medical history significant of malignant thymoma diagnosed in , status post resection, chemoradiation with mets to lungs and spine, status post right lung lobectomy and multiple spine surgeries, severe malnutrition, history of nocardia on Bactrim currently, history of thrombocytopenia, BPH, currently urinary retention on Staley catheter, history of GERD, aspiration pneumonia who was recently admitted to [place] because of right lower extremity weakness. He was admitted on 12/27/2022. Recently from 12/20/2022 to 12/22/2019, he also treated for aspiration pneumonia with Au gmentin course, which resolved his symptoms. In [place], for right leg weaness he was evaluated by Spine Neurosurgery, advised to have an MRI cervical, thoracic and lumbar spine, resulted as chronic postsurgical tenderness, epidural metastasis postradiation changes. Slightly increased foraminal paravertebral tumor most evident at right T11-T12 neural foramen and increased size of enhancing mass at right paraspinal compartment measuring 6.2 cm. Based on MRI review by Neurosurgery, advised no acute surgical intervention, but to have Radiation Oncology and Oncology followup. Radiation Oncology advised to continue outpatient followup and not to have any acute radiation treatment currently. Per Oncology advised to resume capecitabine 1000 mg p.o. b.i.d., on 1-14 of a 21-day cycle. Oncology, Radiation Oncology is supposed to follow as outpatient. During the stay, the patient had urinary retention requires straight catheterization and discharged to rehab [facility]. Currently on Staley. In the last couple of days patient developed left lower extremity weakness and not able to move both lower extremities now. He has sensations intact. He has a Staley catheter and he was constipated in the last couple of weeks and is using stool softeners. ER talked to the [place] [facility] and Hospitalist and was accepted in transfer. But currently [facility] they do not have beds and will be getting admitted here tonight. In the ER, his Lyme screen came back positive IgG, IgM is negative. We are waiting for the bands, received Rocephin,. He says couple of weeks ago, he also has discomfort in the right shoulder and has some difficulty with neck movement, but that is improved now Admission Exam Per Admitting Provider GENERAL: The patient is of moderate build, not in acute distress. VITAL SIGNS: Temperature 36.6, pulse 115, respiratory rate 20, blood pressure 96/61, oxygen 97% on room air. HEENT: Pupils equal, round and reactive of light. Extraocular muscles intact. No pallor. No thrush. Oral mucosa moist. NECK: No neck masses. Supple. CARDIOVASCULAR: S1 and S2 heard. Regular rate and rhythm. No murmur, no gallop. RESPIRATORY SYSTEM: Normal AP diameter. No accessory muscle use. No wheezing, no crackles. ABDOMEN: Soft, bowel sounds present, nontender, no distention. CENTRAL NERVOUS SYSTEM: Alert and oriented. Speech is clear. No facial droop. Insight is good. Power 5/5 in upper extremities. coordination normal in upper extremities, cannot move his lower extremities. Sensation is intact. EXTREMITIES: No edema, no erythema. Principal Diagnosis Bilateral lower extremity weakness Lyme IgG positive Discharge Exam Constitutional: WD/WN, vitals as above, NAD, sitting up in bed, pleasant, conversing easily Respiratory: normal respiratory effort, lungs clear to auscultation, no wheeze, rales, rhonchi. Normal insp/exp effort, no accessory muscle use Chestright-sided port present. Cardiovascular: RRR, no murmur, no edema Vessels: no JVD or carotid bruit Chest: normal inspection of chest Abdomen: normal bowel sounds, soft, nontender, no hepatosplenomegaly Musculoskeletal: no cyanosis or clubbing, extremities motor strength 5/5 Skin: no rashes, warm and dry normal turgor Neurologic: Alert orient x3. Cranial nerves II to X intact. Strength in upper extremity symmetric and antigravity. Unable to move lower extremity. Spasms noted in bilateral lower extremity. Sensation intact. Discharge Data Allergies Allergy/AdvReac Type Severity Reaction Status Date / Time TAPE Allergy Mild IRRITATES Uncoded 01/02/23 15:32 SKIN Consultations 01/02/23 20:27 ED Decision to Admit Stat Hospital Course (1) Bilateral leg weakness: (2) Lyme disease: Plan Patient is a 57-year-old male with past medical history significant for malignant thymoma diagnosed in , status post resection, chemoradiation with mets to lungs and spine, status post right lung lobectomy and multiple spine surgeries, history of nocardia, thrombocytopenia, BPH, urinary retention, Staley, severe malnutrition, was recently after Mother's Day having right lower extremity was in [place] from 12/27/2020 to 12/30/2021, evaluated by Neurosurgery and reviewed MRI scans and , recommended Radiation Oncology and Oncology. Rad/onco and onco to follow as out patient and patient was discharged to rehab [facility]. Patient presented here here because of now he has also developed left lower extremity weakness. ER talked to the Oncology in [place] and hospitalist in [place] and was accepted in transfer, but they do not have bed currently, was advised to give 1 gram of Solu-Medrol, which was given. He was also found to have on Lyme screen IgG positive, IgM negative. Lab work done during the hospitalization reviewed; were within normal limits. Chest x-ray personally reviewed; no acute process present. Patient denies any history of Lyme disease in the past. Started on Rocephin, follow the bands. History of Nocardia; continue Bactrim Urinary retention; was discharged on a straight cath from [place]. Staley placed 2 days ago in rehab. DVT prophylaxis; SCDs for now. Discussed with his over the phone. Answered questions/queries Total Time Total Time Spent Total Time Spent (In Minutes): 45 Discharge Plan Discharge Items Patient Disposition: Transfer Acute Care Hospital Reason For Visit: BILATERAL LEG WEAKNESS Discharge Diagnosis: Bilateral lower extremity weakness, history of thymoma status post surgery/radiation. Activity: Resume your previous activity Non-emergency contact: Primary Care Provider Call non-emergency contact if: you have any medication questions Follow-up/Referrals: [facility] [Primary Care Provider] - Diet: Regular Pending Studies at Discharge: No Stand-Alone Forms: My [facility] Skilled Items Patient informed of condition?: Yes DNR: Yes Discharge Level of Care: Other Communicable Disease: No Discharge Prognosis: Stable Lines: None Urinary Catheter: Yes Medications and DC Order Prescriptions: Continued acetaminophen [Tylenol] 325 mg Tablet 650 mg PO Q4H PRN (Reason: Pain (Scale Score 1-3)) ondansetron HCl [Zofran] 4 mg Tablet 4 mg PO Q4H PRN (Reason: NAUSEA/VOMITING) sennosides-docusate sodium [Senokot-S] 8.6-50 mg Tablet 1 tab-cap PO QDL PRN (Reason: Constipation) sulfamethoxazole-trimethoprim [Bactrim DS] 800-160 mg Tablet 1 tab PO BID Rx Instructions: STARTED 12/30/22 FOR 30 DAYS, STOP 01/29/23. magnesium hydroxide [Milk of Magnesia] 400 mg/5 mL Suspension 30 ml PO DAILY PRN (Reason: Constipation) bisacodyl 10 mg Suppository 10 mg HI DAILY PRN (Reason: Constipation) Fleet Enema 19-7 gram/118 mL Enema 118 ml HI DAILY PRN (Reason: Constipation) docusate sodium 100 mg Capsule 100 mg PO BID polyethylene glycol 3350 [Miralax] 17 gram/dose Powder 17 g PO BID zinc sulfate 50 mg zinc (220 mg) Capsule 50 mg PO DAILY Admission Data Admit Date/Time: 01/02/23 22:39 Attending Provider: Gold Holcomb Admit Provider: Willem Perez Primary Care Provider: Saloni Cat Other Providers: Willem Perez
[2023-01-03] MEDS: MAGNESIUM HYDROXIDE SUSP 30 ML UDC PO PRN (18:39)
[2023-01-03] MEDS: cefTRIAXone SODIUM 2,000 MG in DEXTROSE 5% 50 ML IV SCH (20:33)
--- NOTE | 2023-01-04 05:48 | Electrocardiogram Report ---
Test Reason : Blood Pressure : / mmHG Vent. Rate : 117 BPM Atrial Rate : 117 BPM P-R Int : 144 ms QRS Dur : 070 ms QT Int : 318 ms P-R-T Axes : 068 -30 052 degrees QTc Int : 443 ms Poor data quality, interpretation may be adversely affected Sinus tachycardia Left axis deviation Nonspecific ST abnormality Abnormal ECG No previous ECGs available Confirmed by Abdelrahman Sanchez ([id number]) on 01/04/2023 5:48:30 AM Referred By: [facility] Confirmed By:Abdelrahman Sanchez
[2023-01-04] MEDS: SULFAMETHOXAZOLE/TRIMETHOPRIM DS 800/160MG TAB PO SCH ×2 (08:44→20:14)
[2023-01-04] MEDS: ZINC SULFATE 220 MG CAPSULE PO SCH (08:44)
[2023-01-04] MEDS: POLYETHYLENE (MIRALAX) 17 GM PACK PO SCH ×2 (09:14→20:15)
[2023-01-04] MEDS: DOCUSATE SODIUM 100 MG CAP PO SCH ×2 (09:14→20:14)
--- NOTE | 2023-01-04 15:20 | Discharge Summary ---
Date of Service January 04, 2023 Admission HPI Per Admitting Provider This is a 57-year-old male with past medical history significant of malignant thymoma diagnosed in , status post resection, chemoradiation with mets to lungs and spine, status post right lung lobectomy and multiple spine surgeries, severe malnutrition, history of nocardia on Bactrim currently, history of thrombocytopenia, BPH, currently urinary retention on Staley catheter, history of GERD, aspiration pneumonia who was recently admitted to [place] because of right lower extremity weakness. He was admitted on 12/27/2022. Recently from 12/20/2022 to 12/22/2019, he also treated for aspiration pneumonia with Au gmentin course, which resolved his symptoms. In [place], for right leg weaness he was evaluated by Spine Neurosurgery, advised to have an MRI cervical, thoracic and lumbar spine, resulted as chronic postsurgical tenderness, epidural metastasis postradiation changes. Slightly increased foraminal paravertebral tumor most evident at right T11-T12 neural foramen and increased size of enhancing mass at right paraspinal compartment measuring 6.2 cm. Based on MRI review by Neurosurgery, advised no acute surgical intervention, but to have Radiation Oncology and Oncology followup. Radiation Oncology advised to continue outpatient followup and not to have any acute radiation treatment currently. Per Oncology advised to resume capecitabine 1000 mg p.o. b.i.d., on 1-14 of a 21-day cycle. Oncology, Radiation Oncology is supposed to follow as outpatient. During the stay, the patient had urinary retention requires straight catheterization and discharged to rehab [facility]. Currently on Staley. In the last couple of days patient developed left lower extremity weakness and not able to move both lower extremities now. He has sensations intact. He has a Staley catheter and he was constipated in the last couple of weeks and is using stool softeners. ER talked to the [place] [facility] and Hospitalist and was accepted in transfer. But currently [facility] they do not have beds and will be getting admitted here tonight. In the ER, his Lyme screen came back positive IgG, IgM is negative. We are waiting for the bands, received Rocephin,. He says couple of weeks ago, he also has discomfort in the right shoulder and has some difficulty with neck movement, but that is improved now Admission Exam Per Admitting Provider GENERAL: The patient is of moderate build, not in acute distress. VITAL SIGNS: Temperature 36.6, pulse 115, respiratory rate 20, blood pressure 96/61, oxygen 97% on room air. HEENT: Pupils equal, round and reactive of light. Extraocular muscles intact. No pallor. No thrush. Oral mucosa moist. NECK: No neck masses. Supple. CARDIOVASCULAR: S1 and S2 heard. Regular rate and rhythm. No murmur, no gallop. RESPIRATORY SYSTEM: Normal AP diameter. No accessory muscle use. No wheezing, no crackles. ABDOMEN: Soft, bowel sounds present, nontender, no distention. CENTRAL NERVOUS SYSTEM: Alert and oriented. Speech is clear. No facial droop. Insight is good. Power 5/5 in upper extremities. coordination normal in upper extremities, cannot move his lower extremities. Sensation is intact. EXTREMITIES: No edema, no erythema. Principal Diagnosis Bilateral lower extremity weakness Lyme IgG positive Discharge Exam Constitutional: WD/WN, vitals as above, NAD, sitting up in bed, pleasant, conversing easily Respiratory: normal respiratory effort, lungs clear to auscultation, no wheeze, rales, rhonchi. Normal insp/exp effort, no accessory muscle use Chestright-sided port present. Cardiovascular: RRR, no murmur, no edema Vessels: no JVD or carotid bruit Chest: normal inspection of chest Abdomen: normal bowel sounds, soft, nontender, no hepatosplenomegaly Musculoskeletal: no cyanosis or clubbing, extremities motor strength 5/5 Skin: no rashes, warm and dry normal turgor Neurologic: Alert orient x3. Cranial nerves II to X intact. Strength in upper extremity symmetric and antigravity. Unable to move lower extremity. Spasms noted in bilateral lower extremity. Sensation intact. Discharge Data Allergies Allergy/AdvReac Type Severity Reaction Status Date / Time TAPE Allergy Mild IRRITATES Uncoded 01/02/23 15:32 SKIN Consultations 01/02/23 20:27 ED Decision to Admit Stat Hospital Course (1) Bilateral leg weakness: (2) Lyme disease: Plan Patient is a 57-year-old male with past medical history significant for malignant thymoma diagnosed in , status post resection, chemoradiation with mets to lungs and spine, status post right lung lobectomy and multiple spine surgeries, history of nocardia, thrombocytopenia, BPH, urinary retention, Staley, severe malnutrition, was recently after Mother's Day having right lower extremity was in [place] from 12/27/2020 to 12/30/2021, evaluated by Neurosurgery and reviewed MRI scans and , recommended Radiation Oncology and Oncology. Rad/onco and onco to follow as out patient and patient was discharged to rehab [facility]. Patient presented here here because of now he has also developed left lower extremity weakness. ER talked to the Oncology in [place] and hospitalist in [place] and was accepted in transfer, but they do not have bed currently, was advised to give 1 gram of Solu-Medrol, which was given. He was also found to have on Lyme screen IgG positive, IgM negative. Lab work done during the hospitalization reviewed; were within normal limits. Chest x-ray personally reviewed; no acute process present. Patient denies any history of Lyme disease in the past. Started on Rocephin, follow the bands. History of Nocardia; continue Bactrim Urinary retention; was discharged on a straight cath from [place]. Staley placed 3 days ago in rehab. DVT prophylaxis; SCDs for now. Total Time Total Time Spent Total Time Spent (In Minutes): 45 Total Time Includes: Examination of the Patient, Discharge Planning, Medication Reconciliation, Communication With Other Providers and Other Discharge Plan Discharge Items Patient Disposition: Transfer Acute Care Hospital Reason For Visit: BILATERAL LEG WEAKNESS Discharge Diagnosis: Bilateral lower extremity weakness, history of thymoma status post surgery/radiation. Activity: Resume your previous activity Non-emergency contact: Primary Care Provider Call non-emergency contact if: you have any medication questions Follow-up/Referrals: [facility] [Primary Care Provider] - Diet: Regular Addtl Attending Provider Instructions: iv Rocephin 2gm daily for possible lyme disease. Pending Studies at Discharge: Yes Studies:: Lyme confirmation Stand-Alone Forms: My [facility] Skilled Items Patient informed of condition?: Yes DNR: Yes Discharge Level of Care: Other Communicable Disease: No Discharge Prognosis: Stable Lines: None Urinary Catheter: Yes Medications and DC Order Prescriptions: Continued acetaminophen [Tylenol] 325 mg Tablet 650 mg PO Q4H PRN (Reason: Pain (Scale Score 1-3)) ondansetron HCl 4 mg Tablet 4 mg PO Q4H PRN (Reason: NAUSEA/VOMITING) sennosides-docusate sodium [Senokot-S] 8.6-50 mg Tablet 1 tab-cap PO QDL PRN (Reason: Constipation) sulfamethoxazole-trimethoprim [Bactrim DS] 800-160 mg Tablet 1 tab PO BID Rx Instructions: STARTED 12/30/22 FOR 30 DAYS, STOP 01/29/23. magnesium hydroxide [Milk of Magnesia] 400 mg/5 mL Suspension 30 ml PO DAILY PRN (Reason: Constipation) bisacodyl 10 mg Suppository 10 mg [place] DAILY PRN (Reason: Constipation) Fleet Enema 19-7 gram/118 mL Enema 118 ml [place] DAILY PRN (Reason: Constipation) docusate sodium 100 mg Capsule 100 mg PO BID polyethylene glycol 3350 [Miralax] 17 gram/dose Powder 17 g PO BID zinc sulfate 50 mg zinc (220 mg) Capsule 50 mg PO DAILY Discharge Orders: Discharge Order (Routine); Ordered 01/04/23 Ordered By: Willem Perez Admission Data Admit Date/Time: 01/02/23 22:39 Attending Provider: Gold Holcomb Admit Provider: Willem Perez Primary Care Provider: Saloni Cat Other Providers: Willem Perez Other Interventions: Discharge Summary Assessment (RN) Last Done: 01/05/23 01:18
--- NOTE | 2023-01-04 15:46 | Hospitalist Progress Note ---
Date of Service January 04, 2023 Assessment & Plan (1) Bilateral leg weakness: (2) Lyme disease: Plan Patient is a 57-year-old male with past medical history significant for malignant thymoma diagnosed in , status post resection, chemoradiation with mets to lungs and spine, status post right lung lobectomy and multiple spine surgeries, history of nocardia, thrombocytopenia, BPH, urinary retention, Staley, severe malnutrition, was recently after Mother's Day having right lower extremity was in [place] from 12/27/2020 to 12/30/2021, evaluated by Neurosurgery and reviewed MRI scans and , recommended Radiation Oncology and Oncology. Rad/onco and onco to follow as out patient and patient was discharged to rehab [facility]. Patient presented here here because of now he has also developed left lower extremity weakness. ER talked to the Oncology in [place] and hospitalist in [place] and was accepted in transfer, but they do not have bed currently, was advised to give 1 gram of Solu-Medrol, which was given. He was also found to have on Lyme screen IgG positive, IgM negative. Lab work done during the hospitalization reviewed; were within normal limits. Chest x-ray personally reviewed; no acute process present. Patient denies any history of Lyme disease in the past. Inquired if Lyme disease can cause the presenting weakness. As per him, neurology consultation was not done last admission when he was admitted to [place]. Started on Rocephin, follow the bands. Discussed with transfer center; bed to likely to be available later today or overnight. History of Nocardia; continue Bactrim DVT prophylaxis; heparin start Admission and Anticipated Discharge Date Admission Date: January 02, 2023 Subjective Patient seen and examined at bedside. No change in clinical status. Afebrile. Hemodynamic stable. Review of Systems Review of Systems: All systems reviewed & are unremarkable except as noted in Subjective Physical Exam Physical Exam: Constitutional: WD/WN, vitals as above, NAD, sitting up in bed, pleasant, conversing easily Respiratory: normal respiratory effort, lungs clear to auscultation, no wheeze, rales, rhonchi. Normal insp/exp effort, no accessory muscle use Chestright-sided port present. Cardiovascular: RRR, no murmur, no edema Vessels: no JVD or carotid bruit Chest: normal inspection of chest Abdomen: normal bowel sounds, soft, nontender, no hepatosplenomegaly Musculoskeletal: no cyanosis or clubbing, extremities motor strength 5/5 Skin: no rashes, warm and dry normal turgor Neurologic: Alert orient x3. Cranial nerves II to X intact. Strength in upper extremity symmetric and antigravity. Unable to move lower extremity. Spasms noted in bilateral lower extremity. Sensation intact. Results & Data Results & Data Vital Signs (Past 12 Hours) Vital Signs Temp Pulse Pulse Resp BP Pulse Ox O2 Del Method 01/04/23 14:43 36.9 C 104 H 18 90/49 L 97 Room Air 01/04/23 08:32 Room Air 01/04/23 11:26 36.7 C 117 H 20 89/49 L 98 Room Air 01/04/23 07:45 36.5 C 103 H 20 98/61 L 98 Room Air 01/04/23 07:33 98 H 01/04/23 04:10 36.6 C 104 H 18 97/61 L 99 Room Air Laboratory Results Laboratory Results WBC 4.32 K/ul (4.8-10.8) L 01/03/23 04:15 RBC 3.45 M/uL (4.70-6.10) L 01/03/23 04:15 Hgb 10.5 g/dl (14.0-18.0) L 01/03/23 04:15 Hct 32.1 % (42.0-52.0) L 01/03/23 04:15 MCV 93.0 fL (80.0-100.0) 01/03/23 04:15 MCH 30.4 pg (25.0-34.0) 01/03/23 04:15 MCHC 32.7 g/dL (32.0-36.0) 01/03/23 04:15 RDW Std Deviation 45.2 fL (36.4-46.3) 01/03/23 04:15 RDW Coeff of Alexa 13.4 % (11.5-14.5) 01/03/23 04:15 Plt Count 188 K/uL (130-400) 01/03/23 04:15 MPV 9.0 fL (9.4-12.4) L 01/03/23 04:15 Immature Gran % (Auto) 1.6 % 01/03/23 04:15 Neut % (Auto) 90.5 % 01/03/23 04:15 Lymph % (Auto) 7.4 % 01/03/23 04:15 [place] % (Auto) 0.5 % 01/03/23 04:15 Eos % (Auto) 0.0 % 01/03/23 04:15 Baso % (Auto) 0.0 % 01/03/23 04:15 Neut # (Auto) 3.91 K/uL (1.40-6.50) 01/03/23 04:15 Lymph # (Auto) 0.32 K/uL (1.2-3.4) L 01/03/23 04:15 [place] # (Auto) 0.02 K/uL (0.11-0.59) L 01/03/23 04:15 Eos # (Auto) 0.00 K/uL (0-0.50) 01/03/23 04:15 Baso # (Auto) 0.00 K/uL (0-0.2) 01/03/23 04:15 Immature Gran # (Auto) 0.07 K/uL (0.01-0.20) 01/03/23 04:15 Polychromasia 1+ 01/03/23 04:15 Echinocytes 1+ 01/03/23 04:15 Sodium 134 mmol/L (136-145) L 01/03/23 04:15 Potassium 4.6 mmol/L (3.5-5.1) 01/03/23 04:15 Chloride 103 mmol/L (98-107) 01/03/23 04:15 Carbon Dioxide 25 mmol/L (21-32) 01/03/23 04:15 Anion Gap 6 (3-11) 01/03/23 04:15 BUN 25 mg/dl (6-23) H 01/03/23 04:15 Creatinine 0.89 mg/dl (0.6-1.4) 01/03/23 04:15 Est Cr Clr Drug Dosing 85.6 ml/min 01/03/23 04:15 Est GFR ( Amer) 110.0 ml/min 01/03/23 04:15 Est GFR (Non-Af Amer) 94.9 ml/min 01/03/23 04:15 BUN/Creatinine Ratio 28.1 (10-20) H 01/03/23 04:15 Glucose 206 mg/dl (70-99(Fasting)) H 01/03/23 04:15 Lactate 1.4 mmol/L (0.4-2.0) 01/02/23 17:43 Calcium 8.9 mg/dl (8.6-10.3) 01/03/23 04:15 Magnesium 1.7 mg/dl (1.7-2.4) 01/03/23 04:15 Total Bilirubin 0.3 mg/dl (0.2-1.0) 01/02/23 15:28 AST 25 U/L (13-39) 01/02/23 15:28 ALT 22 U/L (7-52) 01/02/23 15:28 Alkaline Phosphatase 93 U/L (34-104) 01/02/23 15:28 Total Creatine Kinase 100 U/L (30-223) 01/02/23 15:28 Total Protein 7.2 gm/dl (6.0-8.3) 01/02/23 15:28 Albumin 3.6 gm/dl (3.4-5.0) 01/02/23 15:28 Globulin 3.6 gm/dl (2.5-4.0) 01/02/23 15:28 Albumin/Globulin Ratio 1.0 (0.9-2) 01/02/23 15:28 TSH 2.434 uIu/ml (0.300-4.500) 01/02/23 15:28 Urine Color Yellow 01/03/23 01:23 Urine Appearance Clear (Clear) 01/03/23 01:23 Urine pH 6.0 (4.5-7.5) 01/03/23 01:23 Ur Specific [place] 1.021 (1.000-1.030) 01/03/23 01:23 Urine Protein Negative (Negative) 01/03/23 01:23 Urine Glucose (UA) Negative (Negative) 01/03/23 01:23 Urine Ketones Trace (Negative) H 01/03/23 01:23 Urine Blood 3+ (Negative) H 01/03/23 01:23 Urine Nitrite Negative (Negative) 01/03/23 01:23 Urine Bilirubin Negative (Negative) 01/03/23 01:23 Urine Urobilinogen Negative (Negative) 01/03/23 01:23 Ur Leukocyte Esterase Trace (Negative) H 01/03/23 01:23 Urine WBC (Auto) 1-5 /hpf (0-5) 01/03/23 01:23 Urine RBC (Auto) >30 /hpf (0-4) H 01/03/23 01:23 U Hyaline Cast (Auto) 1-5 /lpf (0-5) 01/03/23 01:23 U Epithel Cells (Auto) 5-10 /lpf (0-5) H 01/03/23 01:23 Urine Bacteria (Auto) Negative (Negative) 01/03/23 01:23 Lyme Disease IgG Ab Positive (Negative) A 01/02/23 15:28 Lyme Disease IgM Ab Negative (Negative) 01/02/23 15:28 SARS-CoV-2, RNA, NAAT NEGATIVE (NEGATIVE) 01/02/23 15:28 Impressions Chest X-Ray 01/02/23 15:13 XR chest 1V portable HISTORY: weakness COMPARISON: None. FINDINGS: No pneumothorax. No pleural effusions. Postoperative changes within the right lung with right apical scarlike densities and pleural thickening. Volume loss within the right hemithorax likely due to the postoperative changes. Old, healed right-sided rib fractures are noted. There are suture material within the right medial lung base. The left lung is clear. The heart is normal in size. There is extensive posterior fusion hardware within the thoracolumbar spine. A right jugular Port-A-Cath terminates in the SVC. Right tracheal deviation is likely due to the volume loss and retraction within the right lung apex. No evidence for pulmonary edema. IMPRESSION: Postoperative changes noted within the right hemithorax. Otherwise, no acute process within the chest. ACT 112: Negative or not required by law. Electronically signed by: Jeffrey Fried M.D. 01/02/2023 4:01 PM
[2023-01-04] MEDS: MAGNESIUM HYDROXIDE SUSP 30 ML UDC PO PRN (20:14)
[2023-01-04] MEDS: cefTRIAXone SODIUM 2,000 MG in DEXTROSE 5% 50 ML IV SCH (20:14)
[2023-01-04] MEDS ORDERED: HEPARIN SOD 5,000 UNIT/0.5 ML VIAL SQ SCH (21:00)
--- NOTE | 2023-01-07 09:28 | Coding Query ---
CODING QUERY To promote full compliance with coding requirements relating to patient care, provider participation is requested in all cases of dampener uncertainty. Please assist us with the question(s) below: Coding Question(s): Patient admitted with bilateral lower extremity weakness. Positive Lyme on admission. Pt transferred to another acute care faciltiy. Please document, if known or suspected, the etiology of the bilateral leg weakness. Thanks for your help! Sedrick Green TEACHING MANAGER [facility] Physician's Response(s): Serum Lyme IgG was positive. It reflects past infection. It is less likely to cause the weakness. Principal Diagnosis: "that condition established after study, to be chiefly responsible for occasioning the admission of the patient to the hospital for care." Co-Existing Principal Diagnosis: "when two or more diagnoses equally meet the criteria for principal diagnosis as determined by the circumstances of admission, diagnostic work up, and/or therapy provided, and the Alphabetic Index, Tabular List, or another coding guideline does not provide sequencing direction, any one of the diagnoses may be sequenced first." "When the physician has documented what appears to be a current diagnosis in the body of the record, but has not included the diagnosis in the final diagnostic statement, the physician should be asked whether the diagnosis should be added." (Source [facility]oding [facility] 2 QTR90. p3-4) FAY
[2023-01-08 13:52] LABS: 18KDIGG Band REACTIVE; 23KDIGG Band NON-REACTIVE; 23KDIGM Band NON-REACTIVE; 28KDIGG Band REACTIVE; 30KDIGG Band REACTIVE; 39KDIGG Band REACTIVE; 39KDIGM Band NON-REACTIVE; 41KDIGG Band REACTIVE; 41KDIGM Band NON-REACTIVE; 45KDIGG Band REACTIVE; 58KDIGG Band REACTIVE; 66KDIGG Band REACTIVE; 93KDIGG Band REACTIVE; Lyme Antibodies, WB IgG POSITIVE (NEGATIVE); Lyme Antibodies, WB IgM NEGATIVE (NEGATIVE)
== END 2023-01-05 02:24 | disposition short-term general hospital (02) | DRG 947 ==
LOC: ED 14:46 → EDINP 22:39 → 2W 01-03 00:11